=== PATIENT | female | born 1970 | race Caucasian/White ===

== ENCOUNTER 2022-02-25 10:09 | Emergency (ER) | payer BC, SELFPAY ==
--- NOTE | 2022-02-25 10:21 | ED.URI ---
HPI - URI/Sore Throat General Chief Complaint: Upper Respiratory Infection Stated Complaint: ear painful to the touch; dizziness Time Seen by Provider: 02/25/22 10:21 Source: patient and RN notes reviewed History of Present Illness HPI Narrative: Patient is a 51-year-old female who presents to urgent care with complaints of right ear pain and some dizziness with sinus congestion for the last 3 days. Patient denies any nausea, vomiting, fever or cough. States that he she has not been taking anything [id number] for her symptoms however she has used peroxide to the right ear. No other acute complaints. No acute distress noted. Patient aware of the plan of care. Some parts of this dictation were generated by voice recognition software and may contain typographical and/or grammatical inaccuracies. Related Data Allergies Allergy/AdvReac Type Severity Reaction Status Date / Time Penicillins Allergy Unknown tongue Verified 10/03/18 10:26 dimitrios Review of Systems Review of Systems: CONSTITUTIONAL: Denies fever, chills, or sweats. EYES: Denies visual changes, redness, or discharge. ENT: Denies rhinorrhea, sore throat. Reports of otalgia and sinus congestion CARDIOVASCULAR: Denies chest pain, palpitations, or edema. RESPIRATORY: Denies cough or dyspnea. GASTROINTESTINAL: Denies abdominal pain, nausea, vomiting, or diarrhea. GENITOURINARY: Denies dysuria or hematuria. SKIN: Denies rash or itching. MUSCULOSKELETAL: Denies back pain, joint pain, or myalgia. NEUROLOGIC: Denies headache, numbness, or weakness. All other systems reviewed are negative, except as documented in HPI. PMFSH Comments At the time of my signature, I reviewed and agree with the nursing past medical, surgical, social, and family history. There is no relevant family history pertinent to the patient complaint. Exam Narrative: GENERAL: This is a well-nourished, well-developed patient, in no apparent distress. HEAD: normocephalic, atraumatic. EYES: PERRL. Sclera clear/white. Vision is grossly intact. EARS: External ears normal, mild edema and erythema noted to the right auditory canal without drainage, left auditory canals clear and without drainage, TMs normal without perforation. Hearing grossly intact. NOSE: External nose normal with no obvious nasal discharge, nares without redness, no rhinorrhea. THROAT: Mucous membranes moist, posterior pharynx clear. NECK: Neck supple CARDIOVASCULAR: Regular rate and rhythm without murmurs, gallops, or rubs. RESPIRATORY: Clear to auscultation. Breath sounds equal bilaterally. No wheezes, rales, or rhonchi. SKIN: warm, intact with no suspicious lesions or rash, good texture and turgor. NEURO: awake, alert, and oriented to person, place and time. There were no obvious focal neurologic abnormalities. EXTREMITIES: No clubbing, cyanosis, or edema. Course Course Level of Care: Express Care Visit Vital Signs Vital signs: Vital Signs Temperature 98.1 F 02/25/22 10:26 Pulse Rate 92 02/25/22 10:26 Respiratory Rate 20 02/25/22 10:26 Blood Pressure 146/74 H 02/25/22 10:26 Pulse Oximetry 97 02/25/22 10:26 Oxygen Delivery Room Air 02/25/22 10:26 Temperature 98.1 F 02/25/22 10:26 Pulse Rate 92 02/25/22 10:26 Respiratory Rate 20 02/25/22 10:26 Blood Pressure 146/74 H 02/25/22 10:26 Pulse Oximetry 97 02/25/22 10:26 Oxygen Delivery Room Air 02/25/22 10:26 reviewed- Patient is informed that they may have pre-hypertension or hypertension based on a blood pressure reading in the department. I recommend the patient call the primary care provider listed on their discharge instructions or a physician of their choice this week to arrange follow-up for further evaluation of possible pre-hypertension or hypertension. MDM - URI/Sore Throat MDM Narrative Medical decision making narrative: advised patient not to put anything in the ears such as [id number] drops, water, peroxid
[2022-02-25 10:26] VITALS: BP 146/74; PULSE 92; RESP 20; TEMP 36.7; O2SAT 97
== END 2022-02-25 10:57 | disposition home or self-care (01) ==
PROVIDERS: Emergency Provider Nurse Practitioner Family; PCP Nurse Practitioner Family
DX: H60.91 Unspecified otitis externa, right ear (principal)
CPT/HCPCS: 99213; G0463

== ENCOUNTER 2022-04-16 10:44 | Emergency (ER) | payer BC, SELFPAY ==
--- NOTE | ~2022-04-16 | XR_ITS ---
Right ankle Technique: AP, oblique, and lateral views were obtained. Clinical History: Injury Findings: No acute fracture or dislocation is seen. Osseous alignment is anatomic. Ankle mortise and other visualized joint spaces are preserved. Small plantar calcaneal spur noted. Soft tissues are oth erwise unremarkable. Impression: No acute abnormality. Reviewed, dictated and finalized at [facility]. ROOM ATTENDANT Impression: No acute abnormality.
--- NOTE | ~2022-04-16 | XR_ITS ---
Right foot Technique: AP, oblique, and lateral views were obtained. Clinical History: Pain Findings: No acute fracture or dislocation is seen. Osseous alignment is anatomic. Small plantar calc aneal spur noted. Joint spaces are preserved without erosive or degenerative change. Soft tissues are unremarkable. Impression: No fracture or dislocation. Reviewed, dictated and finalized at location . PT COORDINATOR Impression: No fracture or dislocation.
[2022-04-16 10:49] VITALS: BP 149/103; PULSE 83; RESP 16; TEMP 36.7; O2SAT 100
--- NOTE | 2022-04-16 10:56 | ED.LOWEXIN ---
HPI - Extremity Injury (Lower) General Chief Complaint: Extremity Injury, Lower Stated Complaint: Right Foot Ankle Injury Time Seen by Provider: 04/16/22 10:55 Source: patient Mode of arrival: ambulatory Limitations: no limitations History of Present Illness HPI Narrative: Taiwo is a 51-year-old female patient presenting to the clinic today with complaints of right foot and ankle injury after falling approximately 1 hour ago. She reports she was outside and slipped off of a stair and injured her right ankle/foot. Related Data Allergies Allergy/AdvReac Type Severity Reaction Status Date / Time Penicillins Allergy Unknown tongue Verified 10/03/18 10:26 dimitrios Review of Systems Review of Systems: Pertinent positives per HPI. Patient denies any fever, chills, rash, headache, visual changes, dizziness, cough, runny nose, sore throat, shortness of breath, chest pain, palpitations, nausea, vomiting, diarrhea, constipation, abdominal pain, or any urinary issues. PMFSH Comments At the time of my signature, I reviewed and agree with the nursing past medical, surgical, social, and family history. There is no relevant family history pertinent to the patient complaint. Exam Narrative: General: Well-developed, well nourished, in no apparent distress Head: Normocephalic, atraumatic. Cardio: Regular rate and rhythm, s1 and s2 normal, no murmur appreciated. Resp: Clear to auscultation bilaterally, no rhonchi, rales, wheezing or rubs. Musculoskeletal: No deformity, mild swelling noted to the right foot and ankle, tender to palpation over the dorsal ankle and foot as well as the distal montes, not tolerating any passive range of motion due to the pain, pain with valgus varus and dorsal flexion and plantar flexion, peripheral pulse strong, no cyanosis, sitting in a wheelchair Course Course Emergency Course: Portions of this record may have been created with voice recognition software. Level of Care: Express Care Visit Vital Signs Vital signs: Vital Signs Temperature 36.7 C 04/16/22 10:49 Pulse Rate 83 04/16/22 10:49 Respiratory Rate 16 04/16/22 10:49 Blood Pressure 149/103 H 04/16/22 10:49 Pulse Oximetry 100 04/16/22 10:49 Oxygen Delivery Room Air 04/16/22 10:49 Temperature 36.7 C 04/16/22 10:49 Pulse Rate 83 12/30/22 10:49 Respiratory Rate 16 04/16/22 10:49 Blood Pressure 149/103 H 04/16/22 10:49 Pulse Oximetry 100 04/16/22 10:49 Oxygen Delivery Room Air 04/16/22 10:49 Vital signs reviewed MDM - Extremity Injury (Lower) MDM Narrative Medical decision making narrative: At the time of visit patient is resting comfortably on the exam table. X-ray was performed of the right ankle and foot and were negative for any fracture or malalignment of the right ankle or foot. I suspect the patient has ankle sprain /foot sprain. Jd wrap was applied and supportive measures were discussed with the patient she voiced understanding discharge instructions agrees to treatment plan. Differential Diagnosis Differential diagnosis: Likely ankle sprain and strain, ankle fracture and other ( Fall, foot sprain, foot fracture) Imaging Data Radiologist's impression: [address] [place] [address] XRay Report Signed Patient: Karen Boucher : 1970 MR#: [id number] Age/Sex: 51 / F Acct:[id number] Loc: [facility]? ? ADM Date: 04/16/22Attending Dr: Ordering Physician: Tim Devries APRN Date of Service: 04/16/22 Procedure(s): XR ankle RT min 3V Accession Number(s): [id number] cc: Marylu, Shannon Martinez APN; Tim Devries APRN~ Right ankle Technique: AP, oblique, and lateral views were obtained. Clinical History: Injury Findings: No acute fracture or dislocation is seen. Osseous alignment is anatomic. Ankle mortise and other visualized joint spaces are preserved. Small plantar calcaneal spur
== END 2022-04-16 11:25 | disposition home or self-care (01) ==
PROVIDERS: Emergency Provider Nurse Practitioner Family; PCP Nurse Practitioner Family
DX: S93.601A Unspecified sprain of right foot, initial encounter (principal); W10.9XXA Fall (on) (from) unspecified stairs and steps, initial encounter; S93.401A Sprain of unspecified ligament of right ankle, initial encounter; E03.9 Hypothyroidism, unspecified
CPT/HCPCS: 73610; 73630; 99213; G0463

== ENCOUNTER 2023-05-25 19:07 | Emergency (ER) | payer OTHER, SELFPAY ==
--- NOTE | ~2023-05-25 | XR_ITS ---
EXAMINATION: XR forearm RT 2V DATE: 05/25/2023 19:34 INDICATION: Right forearm injury and pain. TECHNIQUE: 2 views of right forearm were obtained. COMPARISON: None. FINDINGS: Bone alignment is normal. No fracture. Joint spaces are normal. No elbow joint effusion. IMPRESSION: 1. Normal right forearm. Reviewed, dictated and finalized at location E. RIOR SURFACE INSULATION WORKER IMPRESSION: 1. Normal right forearm.
--- NOTE | ~2023-05-25 | XR_ITS ---
EXAMINATION: XR wrist RT min 3V DATE: 05/25/2023 19:34 INDICATION: Right wrist injury and pain. TECHNIQUE: 4 views of right wrist were obtained. COMPARISON: None. FINDINGS: Bone alignment is normal. No fracture. Joint spaces are normal. IMPRESSION: 1. Normal right wrist. Reviewed, dictated and finalized at location E. ROLLING MACHINE TENDER IMPRESSION: 1. Normal right wrist.
[2023-05-25 19:20] VITALS: BP 150/80; PULSE 84; RESP 16; TEMP 36.4; O2SAT 100
--- NOTE | 2023-05-25 19:47 | ED.GENADULT ---
HPI - General Adult General Chief complaint: Extremity Injury, Upper Stated complaint: Right Wrist Injury Time Seen by Provider: 05/25/23 19:30 Source: patient, family, RN notes reviewed and old records reviewed Mode of arrival: ambulatory Limitations: no limitations History of Present Illness HPI narrative: 52 YEAR OLD FEMALE PRESENTS TO [facility] CARE WITH COMPLAINTS OF RIGHT WRIST AND FOREARM PAIN AFTER PATIENT SHE CARES FOR IN THEIR HOME HAD A SEIZURE AND GRABBED HER ARM TO HELP GET HER UP. NO OBVIOUS DEFORMITY.Patient reports some increase in discomfort with movement of her wrist and forearm, patient is able to pronate and supinate her right arm, strong pulses to right arm. MD complaint: RIGHT WRIST AND FOREARM PAIN Onset (ago): hour(s) (AT 1815 THIS EVENING) Severity: mild Treatments prior to arrival: cold therapy Related Data Home Medications Medication Instructions Recorded Confirmed levothyroxine 50 mcg tablet 50 mcg PO QAM 05/25/23 05/25/23 Allergies Allergy/AdvReac Type Severity Reaction Status Date / Time Penicillins Allergy Unknown tongue Verified 05/25/23 19:29 dimitrios Review of Systems Review of Systems: CONSTITUTIONAL: Denies fever, chills, or sweats. EYES: Denies visual changes, redness, or discharge. ENT: Denies rhinorrhea, congestion, sore throat, or otalgia. CARDIOVASCULAR: Denies chest pain, palpitations, or edema. RESPIRATORY: Denies cough or dyspnea. GASTROINTESTINAL: Denies abdominal pain, nausea, vomiting, or diarrhea. GENITOURINARY: Denies dysuria or hematuria. SKIN: Denies rash or itching. MUSCULOSKELETAL: Denies back pain, REPORTS PAIN TO RIGHT ULNA SIDE OF WRIST AND INTO FOREARM, or myalgia. NEUROLOGIC: Denies headache, numbness, or weakness. PSYCHIATRIC: Denies anxiety or depression. All systems reviewed & are unremarkable except as noted in HPI and below PMFSH Past Medical History Medical History (Updated 05/27/23 @ 22:45 by Janette Alfonso NP) Breast cancer, left Hypothyroidism Kidney stone Surgical History Surgical History (Updated 05/27/23 @ 22:48 by Janette Alfonso NP) H/O: hysterectomy History of tonsillectomy S/P cervical spinal fusion Social History Social History (Updated 05/27/23 @ 22:44 by Janette L. Naty, VISUAL EFFECTS EDITOR) Smoking packs per day: 0.5 Smoking cigarettes per day: 10.0 Smoking status: Current every day smoker Tobacco type: cigarettes Substance use type: does not use Living arrangements: with family Gender identity (if verbalized by the patient): Female Comments At time of signature, agree with nursing past medical, surgical, social and family history. There is no relevant family history pertinent to the presenting complaint Exam Narrative: GENERAL: Well-appearing, well-nourished, and in no acute distress. HEAD: Normocephalic, atraumatic. EYES: PERRLA and EOMI. ENT: Nares clear, no rhinorrhea or epistaxis. Mucous membranes moist. NECK: Supple.NO LYMPHADENOPATHY CHEST: Clear to auscultation. No respiratory distress. SAO2 100% ON ROOM AIR HEART: Regular rate and rhythm. No murmur heard. Normal peripheral pulses. ABDOMEN: Soft, nontender, nondistended, normal active bowel sounds. EXTREMITIES: Normal range of motion. No edema.POSITIVE FOR PAIN TO RIGHT WRIST ALONG ULNA SIDE WITH SOME RADIATION INTO FOREARM, NO OBVIOUS DEFORMITY NOTED, FULL ROM NOTED. SKIN: Warm, dry, no rash. NEURO: No focal deficits. Alert and oriented x3. Course Course Emergency Course: Patient is aware of diagnosis, understands and agrees to treatment plan.? Anticipatory guidance given.? Patient agrees to follow-up as directed and is aware of reasons to seek care at the emergency department. Portions of this record may have been created with voice recognition software Level of Care: Express Care Visit Vital Signs Vital signs: Vital Signs Temperature 36.4 C L 05/25/23 19:20 Pulse Rate 84 05/25/23 19:20 Respiratory Rate 16 05/25/23 19:20 Bloo
== END 2023-05-25 20:07 | disposition home or self-care (01) ==
PROVIDERS: Emergency Provider Registered Nurse; PCP Family Medicine
DX: S63.501A Unspecified sprain of right wrist, initial encounter (principal); S66.911A Strain of unspecified muscle, fascia and tendon at wrist and hand level, right hand, initial encounter; X58.XXXA Exposure to other specified factors, initial encounter; M79.631 Pain in right forearm; F17.210 Nicotine dependence, cigarettes, uncomplicated; E03.9 Hypothyroidism, unspecified; Z85.3 Personal history of malignant neoplasm of breast
CPT/HCPCS: 73090; 73110; 99213; G0463

== ENCOUNTER 2024-04-05 08:26 | Emergency (ER) | payer BC, SELFPAY ==
[2024-04-05 08:38] VITALS: BP 132/85; PULSE 79; RESP 20; TEMP 36.8; O2SAT 99
--- NOTE | 2024-04-05 08:56 | ED.URI ---
HPI - URI/Sore Throat General Chief Complaint: Upper Respiratory Infection Stated Complaint: achey/coughing/fever Time Seen by Provider: 04/05/24 08:57 Source: patient and RN notes reviewed Mode of arrival: ambulatory Limitations: no limitations History of Present Illness HPI Narrative: 53 y/o female presented for c/o cough and body aches for one week. Endorses diarrhea and nausea for 2 days. Endorses wheeze at night and cough is productive of green sputum. Denies abdominal pain, vomiting, or lethargy. smokes a few cigs MD elicited complaint: cough Related Data Home Medications ?Medication ?Instructions ?Recorded ?Confirmed ?Last Taken ?Type levothyroxine 50 mcg tablet 50 mcg PO QAM 05/25/23 04/05/24 Unknown History metformin 500 mg tablet,extended mg PO 04/05/24 Unknown History release 24 hr phentermine 15 mg capsule mg 04/05/24 Unknown History Allergies Allergy/AdvReac Type Severity Reaction Status Date / Time Penicillins Allergy Unknown tongue Verified 05/25/23 19:29 dimitrios Review of Systems Review of Systems: CONSTITUTIONAL: Endorses malaise, chills, sweats, fever EYES: Denies visual changes, redness, or discharge ENT: Reports rhinorrhea, congestion, denies sinus pain, otalgia, sore throat CARDIOVASCULAR: Denies chest pain, palpitations, edema RESPIRATORY: Reports cough, post nasal drainage. Denies dyspnea GASTROINTESTINAL: Denies abdominal pain, reports nausea, vomitingdiarrhea MUSCULOSKELETAL: Endorses myalgia NEUROLOGIC: Denies headache PMFSH Past Medical History Medical History Breast cancer, left Hypothyroidism Kidney stone Surgical History Surgical History S/P cervical spinal fusion History of tonsillectomy H/O: hysterectomy Social History Social History Smoking packs per day: 0.5 Smoking cigarettes per day: 10.0 Smoking status: Current every day smoker Tobacco type: cigarettes Substance use type: does not use Living arrangements: with family Gender identity (if verbalized by the patient): Female Exam Narrative: GENERAL: Ill-appearing, nontoxic EYES: PERRLA, conjunctivae clear ENT: Mucous membranes moist. TM pearly bauer with dull light reflex bilaterally; no tragal tenderness. Oropharynx erythematous without lesions or exudate, no drooling, no hoarseness, no trismus, uvula midline. NECK: Supple. No lymphadenopathy CHEST: Clear to auscultation, breath sounds equal. Harsh cough. No wheezing, rhonchi, rales, or stridor. No respiratory distress, speaks in full sentences. HEART: Regular rate and rhythm. No murmur heard. SKIN: Warm, dry NEURO: Alert and oriented x3. PSYCH: Normal mood and affect Course Course Emergency Course: Patient is aware of diagnosis, understands and agrees to treatment plan. Anticipatory guidance given. Patient agrees to follow-up as directed and is aware of reasons to seek care at the emergency department. Portions of this record may have been created with voice recognition software Level of Care: Express Care Visit Vital Signs Vital signs: Vital Signs Temperature 98.2 F 04/05/24 08:38 Pulse Rate 79 04/05/24 08:38 Respiratory Rate 20 04/05/24 08:38 Blood Pressure 132/85 04/05/24 08:38 Pulse Oximetry 99 04/05/24 08:38 Oxygen Delivery Room Air 04/05/24 08:38 Temperature 98.2 F 04/05/24 08:38 Pulse Rate 79 04/05/24 08:38 Respiratory Rate 20 04/05/24 08:38 Blood Pressure 132/85 04/05/24 08:38 Pulse Oximetry 99 04/05/24 08:38 Oxygen Delivery Room Air 04/05/24 08:38 reviewed MDM - URI/Sore Throat MDM Narrative Medical decision making narrative: Discussed physical exam findings. Advised supportive measures and signs/symptoms to go to the ER. Pt is appropriate for outpt treatment and f/u. Differential Diagnosis Differential diagnosis: Likely upper respiratory infection, sinusitis, viral infection, bronchitis and other (pneumonia) Lab Data Labs: Lab Results 04/05/24 Range/Units 09:05 POC Influenza A Ag Negative (Negative) POC Influenza B Ag Negative (Negative) POC SARS CoV-2 Ag Negative (Negative) Discharge Plan Discharge Clinical Impression: Acute lower respiratory infection Patient Disposition: Home, Self-Care Condition: Stable Instructions: Antibiotic Form, Pneumonia (ED) Additional Instructions: Acute bronchitis can be contagious because it is usually caused by infection with a virus or bacteria. It is usually for a few days but you can be contagious for up to one week. Avoid crowds until you do not have a fever and symptoms are improved Take medication as directed Recommendations: Flonase spray and Zyrtec (or Claritin/Jo) over the counter Cough syrup may cause drowsiness; avoid driving or take it at night time. Tylenol 1000mg every 8 hours as needed for pain Symptomatic treatment includes: rest, fluids, and increase humidity of the air at home. Follow up with your primary care provider as needed in 1 week Go to the ER for worsening symptoms or concerns Patient Language: French Prescriptions: New azithromycin [Zithromax Z-Agusto] 250 mg tablet See Rx Instructions .ROUTE .COMPLEX Qty: 6 0RF Rx Instructions: For 250 mg dose pack: take 500 mg today (day 1), then 250 mg for 4 days (days 2-5) prednisone 50 mg tablet 50 mg PO DAILY Qty: 5 0RF albuterol sulfate 90 mcg/actuation HFA aerosol inhaler 2 inh inhalation QID PRN (Reason: shortness of breath or wheezing) Qty: 8.5 0RF No Action levothyroxine 50 mcg tablet 50 mcg PO QAM phentermine 15 mg capsule metformin 500 mg tablet extended release 24 hr PO Follow-up/Referrals: Wolfgang,MD Angel [Primary Care Provider] - Stand Alone Forms: Work/School Release IP
[2024-04-05 09:06] LABS: EDCOVIDSCREEN Negative (Negative); EDINFLUASCREEN Negative (Negative); EDINFLUBSCREEN Negative (Negative)
== END 2024-04-05 09:10 | disposition home or self-care (01) ==
PROVIDERS: Emergency Provider Nurse Practitioner Family; PCP Family Medicine
DX: J22 Unspecified acute lower respiratory infection (principal); E03.9 Hypothyroidism, unspecified; F17.210 Nicotine dependence, cigarettes, uncomplicated; Z85.3 Personal history of malignant neoplasm of breast; Z79.84 Long term (current) use of oral hypoglycemic drugs; Z79.899 Other long term (current) drug therapy; Z20.822 Contact with and (suspected) exposure to COVID-19
CPT/HCPCS: 87426; 87804; 99213; G0463

== ENCOUNTER 2024-07-16 12:05 | Emergency (ER) | payer BC, SELFPAY ==
[2024-07-16 12:15] VITALS: BP 128/81; PULSE 87; RESP 20; TEMP 36.3; O2SAT 99
--- NOTE | 2024-07-16 12:34 | ED_ITS ---
HPI - Extremity Problem General Chief complaint: Extremity Problem,Nontraumatic Stated complaint: right hand swollen/and going up to elbow Source: patient, RN notes reviewed and old records reviewed Mode of arrival: ambulatory Limitations: no limitations History of Present Illness HPI Narrative: 54-year-old female presents to the [facility] with concerns being bit or stung while moving leaves at 5:00 a.m. this morning. No treatment prior to arrival. Puncture wound noted between 2nd and 3rd MCP right hand. Mild swelling noted to the localized area. Onset (ago): hour(s) Related Data Home Medications ?Medication ?Instructions ?Recorded ?Confirmed ?Last Taken ?Type levothyroxine 50 mcg tablet 50 mcg PO QAM 05/25/23 07/16/24 Unknown History Allergies Allergy/AdvReac Type Severity Reaction Status Date / Time Penicillins Allergy Unknown tongue Verified 05/25/23 19:29 dimitrios Review of Systems Review of Systems: All systems reviewed & are unremarkable except as noted in HPI and below Constitutional: Constitutional: Reports no additional constitutional complaints ENT: Reports system reviewed and no additional complaints, except as documented Cardiovascular: Cardiovascular: Reports no additional cardiovascular complaints, Denies chest pain and Denies dyspnea Respiratory: Respiratory: Reports no additional respiratory complaints, Denies chest congestion, Denies cough and Denies dyspnea Musculoskeletal: Musculoskeletal: Reports no additional musculoskeletal complaints Integumentary/Breasts: Skin/Breast: Reports as per HPI [facility] Past Medical History Medical History Breast cancer, left Hypothyroidism Kidney stone Surgical History Surgical History S/P cervical spinal fusion History of tonsillectomy H/O: hysterectomy Social History Social History Smoking packs per day: 0.5 Smoking cigarettes per day: 10.0 Smoking status: Current every day smoker Tobacco type: cigarettes Substance use type: does not use Living arrangements: with family Gender identity (if verbalized by the patient): Female Comments At the time of my signature, I reviewed and agree with the nursing past medical, surgical, social, and family history. There is no relevant family history pertinent to the patient complaint. Exam Const: General: cooperative, healthy appearing, comfortable, no acute distress, well developed, alert and well nourished Nutritional Appearance: well nourished Orientation/consciousness: patient oriented x3 Limitations: no limitations HENMT: Head: normal to inspection Mouth: Yes Normal oral and palatal mucosa present, Yes lip normal, Yes tongue normal and Yes moist mucous membranes Eyes: General: appearance normal, both eyes and all related structures Alignment and Position: alignment normal Neck: Neck: normal visual inspection, full ROM, no lymphadenopathy and no meningeal signs Chest: Chest palpation & inspection: normal inspection of the chest Resp: Effort & Inspection: normal respiratory effort and able to speak in complete sentences Auscultation: clear to auscultation bilaterally, no crackles, no rales, no rhonchi and no wheezes Cardio: Rate: regular rate Skin: General skin exam: normal color and no rashes or lesions noted Wounds: wounds noted Other: puncture wound dorsal aspect between MCP to 3 right hand. Mild swelling noted. No increased warmth. Full range of motion noted capillary refill under 2 seconds. Sensation intact Neuro: General: patient oriented x3, gait normal, moves all extremities and no meningeal signs Cognition (Neuro): normal cognition Speech: normal speech Gait exam (Neuro): Normal gait present Extrem: General: normal to inspection, full ROM, capillary refill normal and normal gait Psych: Appearance: grossly normal and well kempt Mental Status: mental status grossly normal Speech and movement: Normal speech and movement present and Clear speech present Affect: normal affect Attitude: cooperative Course Course Level of Care: Express Care Visit Vital Signs Vital signs: Vital Signs Temperature 97.3 F L 07/16/24 12:15 Pulse Rate 87 07/16/24 12:15 Respiratory Rate 20 07/16/24 12:15 Blood Pressure 128/81 07/16/24 12:15 Pulse Oximetry 99 07/16/24 12:15 Oxygen Delivery Room Air 07/16/24 12:15 Temperature 97.3 F L 07/16/24 12:15 Pulse Rate 87 07/16/24 12:15 Respiratory Rate 20 07/16/24 12:15 Blood Pressure 128/81 07/16/24 12:15 Pulse Oximetry 99 07/16/24 12:15 Oxygen Delivery Room Air 07/16/24 12:15 Reviewed MDM - Extremity (Nontraumatic) MDM Narrative Medical decision making narrative: patient sitting comfortably in exam room. Nontoxic, vitals stable. Patient in no acute distress. Patient presents with insect bite possibly to the hand. Most likely localized reaction for swelling. Discussed [id number] treatments as well as prescribed medication. Patient appropriate for outpatient treatment and close follow-up Discharge instructions reviewed with patient, as well as provided in writing per nursing staff. The instructions also include specific and strict return/GO TO THE ER as well as f/u information. All questions have been answered, and the patient deny any further questions with discharge and discharge plan. Some parts of this dictation were generated by voice recognition software and may contain typographical and/or grammatical inaccuracies. Differential Diagnosis Differential diagnosis: Likely cellulitis and other Critical Care Time Critical Care Time Critical Care Time: No Discharge Plan Discharge Clinical Impression: Accidental insect sting Patient Disposition: Home, Self-Care Condition: Stable Instructions: Antibiotic Form, Insect Bite or Sting (ED) Additional Instructions: The most important part of your care is follow up with Primary care provider. Take Benadryl 25-50 mg every 8 hours for itching Take Zyrtec every day Take Pepcid 20mg daily for 7 days Take the steroids starting today, than every morning. Avoid hot showers, Take cool showers. Hot showers will make rashes worse Apply cool compresses every 2-3 hours for 15 minutes Go to the ER for new or worsening symptoms such as shortness of breath. Patient Language: Haitian Prescriptions: New prednisone 50 mg tablet 50 mg PO DAILY Qty: 5 0RF No Action levothyroxine 50 mcg tablet 50 mcg PO QAM Follow-up/Referrals: Wolfgang,MD Angel [Primary Care Provider] - 2 Weeks ( [facility] follow-up) Time of Disposition: 12:45
--- OUTSIDE RECORDS SUMMARY | 2024-07-16 13:22 | XMS_ITS | Continuity of Care Document ---
Author Organization [facility] Address [address] [place] [address] Phone Care Team Providers Care Research Tech Name Role Phone Maninder Hurley MD Unavailable Unavailable Allergies, Adverse Reactions, Alerts Substance Reaction Status Criticality PENICILLIN Trouble Breathing Active No Informa tion Medications Medication Instructions Dosage Effective Dates (start - stop) Status Comments phentermine 30 mg capsule take 1 capsule by oral route every day before breakfast 30 MG - Active levothyroxine 25 mcg tablet take 1 tablet by oral route every day 25 MCG - Active Advance Directives Directive Yes / No Effective Date File Name No Information Encounters Encounter Description Practice Location Reason(s) For Visit Diagnoses Date Provider Providers Copied on Encounter [facility], [address], [place], [place], [id number] , tel: [phone] [facility] No Information 0 Xavi Dickens. [address] [place] [address], [id number] , . tel: [phone] [facility], [address], [place], [address] , tel: [phone] [facility] No Information 9 Xavi Dickens. [address] [place] [address], [address], [id number] , . tel: [phone] [facility], [address], [place], [address] , tel: [phone] [facility] No Information 9 Xavi Dickens. [address] [place] [address], [address], [place], [place], [address] , . tel: [phone] [facility], [address], [place], [place], [address] , tel: [phone] [facility] Body mass index (BMI) 35.0-35.9, adultJaw inflammation, rightNeurofibromatosi sFatigue, unspecified type Gwyn Lazaro. [address] , [address], [place], [place], [address] , . tel: [phone] Referring Provider: Maninder Hurley [address] [place] [address] [address], [place], [address] . tel:[phone] [facility], [address], [place], [place], [address] , tel: [phone] [facility] IntertrigoScreening for breast cancerMorbid (severe) obesity due to excess calories Gwyn Lazaro. [address] , [address], [place], [place], [address] , . tel: [phone] Referring Provider: Maninder Hurley [address] [place] [address] [address], [place], [address] . tel:[phone] [facility], [address], [place], [place], [address] , tel: [phone] [facility] Morbid (severe) obesity due to excess caloriesRashCold Gwyncharla Deutscha. [address] , [address], [place], [place], [address] , . tel: [phone] Referring Provider: Maninder Hurley [address] [place] [address] [address], [place], [address] . tel:[phone] [facility], [address], [place], [place], [address] , tel: [phone] [facility] NeurofibromatosisMorb id obesityPrimary insomniaHistory of traumatic brain injuryEncounter for preventive health examinationNeed for DTaP vaccineScreening examination for pulmonary tuberculosis Gwyn Lazaro. [id number] [place] [address], [address], [place], [place], [id number] , [place]. tel: [phone] Referring Provider: Maninder Hurley, [address] [place] [address] [address], [place], [address] . tel:[phone] Family History Family Member Type Diagnosis Age At Onset Mother Problem (finding) Irritable bowel disease Mother Problem (finding) Obesity Mother Problem (finding) osteoarthritis Immunizations Vaccine Date Status Comments Fluzone High-Dose , high dose, preservative free administered Source: New Immunization Record Tdap administered Source: New Imm unization Record Payers Payer name Insurance type Covered constitution party ID Authoriza tion(s) [facility] CI [id number] [facility] CI [id number] Social History Type Description Quantity Date Captured Comments Sex Female Smoking Status No Information Chief Complaint And Reason For Visit No Information Reason For Referral Reason For Referral No Information Plan Of Treatment Date Type Action Status Patient Education Rash: Care Instructions completed History Of Present Illness Encounter Date Complaint History Of Prese nt Illness No Information Functional Status Date Functional Assessmen t No Information Instructions Date Instruction Additional Infor mation No Information Assessments Type Assessment Date No Information Patient Care Teams Name Effective Dates (start - stop) Status Members No Information
--- OUTSIDE RECORDS SUMMARY | 2024-07-16 13:22 | XMS_ITS | Clinical Summary ---
Author Organization [facility] Address [address] [facility] [place] [address] Phone Care Team Providers Care Bulker Name Role Phone Juan Pacheco DO Primary Care Provider [phone] Masha Rivas PAC Unavailable [phone] Allergies Active Allergy Reactions Criticality Noted Date Comments Penicillins Anaphylaxis,Swelling ,Shortness of Breath High 03/04/2015 Medications metoclopramide (REGLAN) 10 MG Tablet Take one tab PO prn headache with nausea. Max 1 per day, 2 per week. 10 Tab 0 6 Active amitriptyline (ELAVIL) 50 MG TabletIndications: Migraine without aura and without status migrainosus, not intractable,Trauma tic brain injury, with loss of consciousness of 30 minutes or less, sequela (HCC) Take 1 Tab by mouth nightly. Take one tablet qhs 60 Tab 3 6 Active topiramate (TOPAMAX) 25 MG TabletIndications: Intractable migraine without aura and without status migrainosus 1 tab PO qhs x 7days, then 1 tab PO bid x 7 days, then 2 tabs PO qhs, 1 tab q am x 7 days, then 2 tabs bid. 120 Tab 3 6 Active HYDROcodone-acetam inophen (NORCO) 5-325 MG Tablet Take 1-2 Tabs by mouth every 4 hours as needed for Pain. 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 Traumatic brain injury 04/29/2015 Migraine without aura and wi thout status migrainosus, not intractable 03/04/2015 Family History Medical History Relation Name Comments Stroke Father Congestive Heart Failure Mother Hypertension Mother Relation Name Status Comments Father Alive Mother Alive Social History Tobacco Use Types Packs/Day Years Used Date Smoking Tobacco: Former Cigarettes Q uit: 11/18/2014 Smokeless Tobacco: Never Tobacco Cessation:Counseling Given: Yes Alcohol Use Standard Drinks/Week Comments No 0 (1 standard drink = 0.6 oz pur e alcohol) Comments No Sex and Gender Information Value Date Recorded Sex Assigned at Not on file Legal Sex Female 10:30 PM CDT Gender Identity Not on file Sexual Orientation Not on file Last Filed Vital Signs Vital Sign Reading Time Taken Comments Blood Pressure 155/84 12/14/2015 8:23 PM CDT Pulse 90 12/14/2015 8:23 PM CDT Temperature 36.7 C (98 F) 12/14/2015 8:23 PM CDT Respiratory Rate 17 12/14/2015 8:23 PM CDT Oxygen Saturation 98% 12/14/2015 8:23 PM CDT Inhaled Oxygen Concentration - - Weight 87.1 kg (192 lb) 12/14/2015 8:23 PM CDT Height 167.6 cm (5' 6 ) 12/14/2015 8:23 PM CDT Body Mass Index 30.99 12/14/2015 8:23 PM CDT Plan of Treatment Health Maintenance Due Date Last Done Comments Hepatitis C Virus (HCV) Screening 1971 TdaP Immunization 1971 Hepatitis B Immunization (1 of 3 - 19+ 3-dose series) 1990 Colonoscopy 2016 Colorectal Cancer Screening 2016 Mammogram 04/09/2017 04/09/2016, 03/10/2015 Cologuard 2021 Immunochemical Fecal Occult Blood 2021 Pneumococcal Immunization (5 0+ years) (1 of 1 - PCV) 2021 Zoster Immunization (1 of 2) 2021 Influenza Immunization (#1) 2023 12/2020, 01/29/2020, 01/22/2019 SARS-COV-2 Immunization (2023-25 season) 2023 Respiratory Syncytial Virus (RSV) Immunization (Adult) (1 - 1-dose 75+ series) 2046 Discussion re Starting/Frequency of Mammograms Discontinued 04/09/2016, 03/10/2015 Meningococcal Immunization (ACWY) Aged Out No longer eligible based on patient's age to complete this topic Rotavirus Immunization Aged Out No lo nger eligible based on patient's age to complete this topic Procedures Procedure Name Priority Date/Time Associated Diagnosis Comments MIKE DIAG BILATERAL DIGITAL W CAD Routine 04/09/2016 11:07 AM CARPET LAYER HELPER Breast lump from Last 3 Months or Most Recently Relevant to Health Maintenance Results * MIKE DIAG BILATERAL DIGITAL W CAD (04/09/2016 11:07 AM CARPET LAYER HELPER) Anatomical Region Laterality Modality breast Bilateral Mammography 04/09/2016 10:2 8 AM CARPET LAYER HELPER Narrative 04/09/2016 2:19 PM CARPET LAYER HELPER - MIKE DIAG BILATERAL DIGITAL W CAD BILATERAL DIGITAL DIAGNOSTIC MAMMOGRAM WITH CAD WITH MEDIOLATERAL MEDIOLATERAL OBLIQUE CRANIOCAUDAL: 04/09/2016 The study was acquired using digital technology and interpreted from soft copy. Current study was also evaluated with ICAD version 7.2. CLINICAL: Palpable lump right breast 7-8:00 and left breast 4:00. Previous history of breast cancer at age 28. No family history of breast cancer. COMPARISONS: Comparison is made to exams dated: 03/10/2015, 01/01/2014 [facility]. FINDINGS: Bilateral diagnostic mammogram: The breasts are composed of scattered fibroglandular tissues. A single triangle shaped marker has been placed on each breast, denoting the patient's palpable areas of concern. Only bland, normal appearing breast tissue seen underlying each marker. No suspicious mass, calcifications, or other significant mammographic findings are seen. There has been no suspicious interval mammographic change involving either breast. Bilateral breast ultrasound: Targeted sonographic evaluation of the bilateral breast palpable areas of concern (right breast at 8 o'clock, 7 cm from the nipple and left breast at 4 o'clock, 7 cm from the nipple) demonstrates only normal appearing breast tissue at each location. IMPRESSION: BI-RAD 1 NEGATIVE 1. No suspicious mammographic or sonographic findings are evident at either breast palpable area of concern. Any further evaluation should be based on clinical findings. 2. No mammographic or sonographic evidence of malignancy involving either breast. Routine annual screening mammography is recommended. The patient has been or will be notified. Simone Woods M.D. mmd/:04/09/2016 11:39:54 Property Analyst: Winnie JENKINS (R)([place]), [facility] letter sent: Normal Exam Reading location: [facility] BI-RADS: 1 Negative Procedure Note Simone Woods MD - 04/09/2016 - MIKE DIAG BILATERAL DIGITAL W CAD BILATERAL DIGITAL DIAGNOSTIC MAMMOGRAM WITH CAD WITH MEDIOLATERAL MEDIOLATERAL OBLIQUE CRANIOCAUDAL: 04/09/2016 The study was acquired using digital technology and interpreted from soft copy. Current study was also evaluated with ICAD version 7.2. CLINICAL: Palpable lump right breast 7-8:00 and left breast 4:00. Previous history of breast cancer at age 28. No family history of breast cancer. COMPARISONS: Comparison is made to exams dated: 03/10/2015, 01/01/2014 [facility]. FINDINGS: Bilateral diagnostic mammogram: The breasts are composed of scattered fibroglandular tissues. A single triangle shaped marker has been placed on each breast, denoting the patient's palpable areas of concern. Only bland, normal appearing breast tissue seen underlying each marker. No suspicious mass, calcifications, or other significant mammographic findings are seen. There has been no suspicious interval mammographic change involving either breast. Bilateral breast ultrasound: Targeted sonographic evaluation of the bilateral breast palpable areas of concern (right breast at 8 o'clock, 7 cm from the nipple and left breast at 4 o'clock, 7 cm from the nipple) demonstrates only normal appearing breast tissue at each location. IMPRESSION: BI-RAD 1 NEGATIVE 1. No suspicious mammographic or sonographic findings are evident at either breast palpable area of concern. Any further evaluation should be based on clinical findings. 2. No mammographic or sonographic evidence of malignancy involving either breast. Routine annual screening mammography is recommended. The patient has been or will be notified. Simone Woods M.D. mmd/:04/09/2016 11:39:54 Property Analyst: Winnie MAYBERRY)([place]), [facility] letter sent: Normal Exam Reading location: [facility] BI-RADS: 1 Negative us Juan Pacheco DO IMG MAMMO ORDERABLES Final R esult from Last 3 Months or Most Recently Relevant to Health Maintenance Additional Health Concerns Infection Onset Date Last Indicated MRSA 03/08/2015 03/08/2015 Insurance COVENTRY Care Teams Bulker Relationship Specialty Start Date End Date Juan Pacheco DO [address] [place] [address] PCP - General 03/04/15 Masha Rivas PAC [address] [place] [address] Physician Silviculturist Physician Silviculturist 03/04/15
--- OUTSIDE RECORDS SUMMARY | 2024-07-16 13:22 | XMS_ITS | Clinical Summary ---
Author Organization [facility] Address [address] [place] [address] Care Team Providers Care Data Developer Name Role Phone [place], Shannon Marie APRN-[facility] Primary Care Provider Source Comments [facility]non-owned Affiliates and Associated Physician Practices is amultiple site organization consisting of ambulatory clinics and hospital sitesin [place], [place], [place] and [place]. This disclosure is being madepursuant to the Care Everywhere program and may not contain all information available regarding this patient. Last updated 18.[facility] Allergies Active Allergy Reactions Criticality Noted Date Comments Penicillins Shortness of Breath High 09/19/2014 Medications * Be aware that medications may not be up to date on this document. Alwaysverify current medications with the patient. Medication Sig Dispensed Refills Start Date End Date Status topiramate (Topamax) 50 MG tablet Take 1 (one) tablet by mouth 2 times daily Active traZODone (Desyrel) 50 MG tablet Take 1 (one) tablet by mouth at bedtime Active cyclobenzaprine (Flexeril) 10 MG tablet Take 1 (one) tablet by mouth 3 times daily as needed for Muscle Spasms Active levothyroxine (Synthroid) 50 MCG tablet Take 1 (one) tablet by mouth daily before breakfast Active magnesium hydroxide (Milk Of Magnesia) 400 MG/5ML suspension Take 15 mL by mouth 3 times daily as needed Active polyethylene glycol 3350 (MiraLax) 17 GM/SCOOP powder Take 17 (seventeen) g by mouth 3 times daily as needed Active docusate sodium (Colace) 100 MG capsule Take 1 (one) capsule by mouth 3 times daily as needed for Constipation Active oxyCODONE-acetamin ophen (Percocet) 5-325 MG tabletIndications: Rectocele Take 1 (one) tablet by mouth every 6 hours as needed for Pain 12 tablet 11/12/2022 Active ibuprofen (Motrin) 600 MG tablet Take 1 (one) tablet by mouth every 6 hours as needed for Pain 30 tablet 11/12/2022 Active Family History Medical History Relation Name Comments Cancer Other Cancer - Colon Other Hypertension Other Relation Name Status Comments Other Social History Tobacco Use Types Packs/Day Years Used Date Smoking Tobacco: Every Day Cigarettes Tobacco Cessation:Ready to Q uit: Not Asked; Counseling Given: Not Answered Alcohol Use Standard Drinks/Week Comments Not Currently 0 (1 standard drink = 0.6 oz pur e alcohol) occ Sex and Gender Information Value Date Recorded Sex Assigned at Not on file Gender Identity Not on file Sexual Orientation Not on file Last Filed Vital Signs Vital Sign Reading Time Taken Comments Blood Pressure 124/77 11/12/2022 3:12 PM CDT Pulse 88 11/12/2022 3:12 PM CDT Temperature 36.5 C (97.7 F) 11/12/2022 3:12 PM CDT Respiratory Rate 18 11/12/2022 3:12 PM CDT Oxygen Saturation 96% 11/12/2022 3:12 PM CDT Inhaled Oxygen Concentration - - Weight 108 kg (238 lb 1.6 oz) 11/12/2022 6:25 AM CDT Height 167.6 cm (5' 6 ) 11/12/2022 6:25 AM CDT Body Mass Index 38.43 11/12/2022 6:25 AM CDT Plan of Treatment Health Maintenance Due Date Last Done Comments COLON MONITORING 1971 COLONOSCOPY - COLON CA SCREENING 1971 CT COLONOGRAPHY - COLON CA SCREENING 1971 FIT - COLON CA SCREENING 1971 FLEX SIG - COLON CA SCREENING 1971 MAMMOGRAM 1971 PAP SMEAR 1971 HIV SCREENING 1986 HEPATITIS C SCREENING 06/10/1989 DTAP/TDAP/TD VACCINES (1 - Tdap) 1990 HEPATITIS B VACCINE (1 of 3 - 19+ 3-dose series) 1990 PNEUMOCOCCAL VACCINE 50+ (1 of 2 - PCV) 1990 PNEUMOCOCCAL VACCINE (1 of 2 - PCV) 1990 ZOSTER VACCINE (1 of 2) 2021 LIPID TESTING 12/31/2021 12/31/2016 COVID-19 VACCINE (1 - 2023-2 5 season) 2023 INFLUENZA VACCINE (#1) 2023 0, 05/04/2018 DEPRESSION SCREENING 04/18/2024 COLOGUARD (AGES 45-75) - COL ON CA SCREENING 07/03/2025 07/03/2022 Colorectal Cancer Screening 07/03/2025 HIB VACCINE Aged Out No longer eligi ble based on patient's age to complete this topic HPV VACCINE Aged Out No longer eligi ble based on patient's age to complete this topic MENINGOCOCCAL (Group B) VACCINE SHARED DECISION-MAKING Aged Out No longer eligible based on patient's age to complete this topic MENINGOCOCCAL GROUPS A/C/Y/W VACCINE Aged Out No longer eligible b ased on patient's age to complete this topic Additional Health Concerns Infection Onset Date Last Indicated MRSA Comment:+ MRSA nares 11/01/22 11/01/2022 11/01/2022 Care Teams Data Developer Relationship Specialty Start Date End Date Shannon Valero, CRITICAL CARE UNIT MANAGER-EDGE BANDER OPERATOR [address] [place] [address] PCP - General Nurse Practitioner Family 11/01/22
--- OUTSIDE RECORDS SUMMARY | 2024-07-16 13:22 | XMS_ITS | Data Portability ---
Author Organization [facility], [facility] Address [address] [place] [address] Assessment No assessment recorded. Plan of Treatment Reminders Order Date Submit Date Provider Last Modified By Organization Details Last Modified Time Details Appointments None recorded. Lab None recorded. Referral None recorded. Procedures None recorded. Surgeries None recorded. Imaging US, transvagina l 2022 023 [email or web address] Not available 3 14:27:20 Medication Orders cyclobenzap rine 10 mg tablet 2022 023 [employer] [facility], [address] [facility], [place], [place], [id number], 4 12:09:34 cyclobenzap rine 10 mg tablet 2022 023 [facility]87752, [address] [place], [place], [id number], 4 12:09:34 Patient TargetsNo targets recorded. Patient InstructionsNo instructions recorded. Reason for Referral None Reported. Results Created Date Observation Date Name Description Value Unit Range Abnormal Flag Note LastModifiedBy Organization Detail LastModifiedTime 09/19/19 23 09/16/2022 US, trans vagin al No observ ation record ed. [email or web address] Danielle [address], [place], [address], 09/19/2022 17:51:09 Result Notes None recorded. Problems Name Problem SNOMED Code Status Onset Date Resolution Date Notes Provider Name and Address Organization Details Recorded Time Hypothyroidism 62647041 Active Katie strickland, [place] - [facility] 3 20:58:12 Vitamin D deficiency 96608078 Active Katie Gifford null, [place] - [facility] 3 20:58:36 Hyperlipidemia 43512445 Active Katie Giff[place] null, [place] - [facility] 3 20:58:53 Obese 235750735 Active [place] [facility] 3 20:59:07 Anxiety 95485801 Active Katie Gifford null, [place] - [facility] 3 20:59:30 Hyperglycemia 38924234 Active Katie Giff[place] null, [place] - [facility] 3 20:59:52 Liver enzymes level above reference range 964900534 Active Katie Gifford null, [place] - [facility] 3 21:02:18 Problem Notes None recorded. Procedures Surgical History Date Name Laterality Status Provider Name and Address Organization Details Recorded Time 3 Suture/Staple removal completed Jayleen Foster [facility] IV 12/21/2022 12:08:53 3 Tlh uterus 250 g or less completed [facility] 11/18/2022 13:03:30 3 Urodynamic Testing completed Count includes the [facility] IV 09/03/2022 15:33:26 3 Most Recent Mammogram completed [facility] IV 07/31/2022 21:26:46 3 Date of Last Pap Smear [facility] 21:34:58 placement of stent in pulmonary artery [facility] 07/31/2022 21:23:32 ligation of fallopian tube completed [facility] IV 07/31/2022 21:23:52 lumpectomy of breast [facility] 07/31/2022 21:24:14 Remove tonsils and adenoids completed [facility] IV 07/31/2022 21:26:06 D & C completed Ayla Carranza [facility] 08/18/2022 10:55:56 Imaging Results Imaging Date Name Status LastModified by Organization Details LastModified Time 09/16/2022 US, transvaginal completed [email or web address] [address], [place], [address], 09/19/2022 17:51:09 Procedure Notes None recorded. Medical Equipment None Reported. Allergies Allergen ID Allergen Name Allergen Category Reaction Reaction Severity Criticality Documentation Date Start Date Code Code System Note Provider Name and Address Organization Details Recorded Time 281075 Product containin g penicilli n (product) medicatio n anaphylax is moderate Not available 07/31/2022 88700 8001 SNOMED Not Available Not Available Not Available Medications Name Sig Start Date Stop Date Status Note LastModified by Organization Details LastModified Time flowflex kit test 08/18 completed Not Available Not Available Not Available ealth 2-pk kit covid-19 08/18 completed Not Available Not Available Not Available cyclobenzap rine 10 mg tablet TAKE 1 TABLET BY MOUTH EVERY 8 HOURS 01/02 completed Not Available Not Available Not Available clindamycin HCl 300 mg capsule TAKE 1 CAPSULE BY MOUTH THREE TIMES DAILY FOR 7 DAYS 11/22 completed Not Available Not Available Not Available trazodone 50 mg tablet TAKE 1 TABLET BY MOUTH EVERY DAY 01/02 completed Not Available Not Available Not Available triamcinolo ne acetonide 0.5 % topical cream APPLY THIN LAYER TOPICALLY TO THE AFFECTED AREA TWICE DAILY 11/22 completed Not Available Not Available Not Available sertraline 100 mg tablet TAKE 1 TABLET BY MOUTH EVERY DAY 08/18 completed Not Available Not Available Not Available metronidazo le 500 mg tablet 01/02 completed Not Available Not Available Not Available phentermine 37.5 mg tablet TAKE 1 TABLET BY MOUTH EVERY DAY 08/18 completed Not Available Not Available Not Available ciprofloxac in 500 mg tablet 01/02 completed Not Available Not Available Not Available sulfamethox azole 800 mg-trimetho prim 160 mg tablet TAKE 1 TABLET BY MOUTH EVERY 12 HOURS FOR 5 DAYS 08/18 completed Not Available Not Available Not Available levothyroxi ne 25 mcg tablet TAKE 1 TABLET BY MOUTH EVERY DAY IN THE MORNING 08/18 completed Not Available Not Available Not Available oxycodone-a cetaminophe n 5 mg-325 mg tablet TAKE 1 TABLET BY MOUTH EVERY 6 HOURS NEEDED FOR PAIN 11/22 completed Not Available Not Available Not Available ofloxacin 0.3 % ear drops INSTILL 10 DROPS TO RIGHT EAR DAILY FOR 7 DAYS 08/18 completed Not Available Not Available Not Available dicyclomine 20 mg tablet 01/02 completed Not Available Not Available Not Available levothyroxi ne 50 mcg tablet TAKE 1 TABLET BY MOUTH EVERY MORNING active Not Available Not Available No t Available cephalexin 500 mg tablet TAKE 1 TABLET BY MOUTH THREE TIMES DAILY FOR 7 DAYS 11/22 completed Not Available Not Available Not Available bisacodyl 5 mg tablet,luis e yed release 11/22 completed Not Available Not Available Not Available ibuprofen 600 mg tablet TAKE 1 TABLET BY MOUTH EVERY 6 HOURS NEEDED FOR PAIN 11/22 completed Not Available Not Available Not Available methylpredn isolone 4 mg tablets in a dose pack FOLLOW PACKAGE DIRECTION S 11/22 completed Not Available Not Available Not Available phentermine 37.5 mg capsule Take 1 capsule every day by oral route. 11/22 completed Not Available Not Available Not Available topiramate 50 mg tablet TAKE 1 TABLET BY MOUTH TWICE DAILY 11/22 completed Not Available Not Available Not Available Paxlovid 300 mg (150 mg x 2)-100 mg tablets in a dose pack TK 2 NIRMATREL VIR TS AND 1 RITONAVIR T TOGETHER PO BID FOR 5 DAYS BID FOR 5 DAYS 08/18 completed Not Available Not Available Not Available Vitals Date Recorded Body height Body mass index (BMI) Body weight Body temperature Systolic blood pressure Diastolic blood pressure Provider Name and Address Organization Details Last Updated DateTime 3 167.64 cm 38.2 kg/m2 641672. 24 g 97.3 [degF] 132 mm[Hg] 78 mm[Hg] Ayla Carranza [facility] 3 15:45:56 Date Recorded Body height Body mass index (BMI) Body weight Body temperature Systolic blood pressure Diastolic blood pressure Provider Name and Address Organization Details Last Updated DateTime 3 167.64 cm 38.4 kg/m2 931130. 98 g 97.5 [degF] 122 mm[Hg] 80 mm[Hg] Ayla Carranza [facility] 3 14:05:09 Date Recorded Body height Body mass index (BMI) Body weight Systolic blood pressure Diastolic blood pressure Provider Name and Address Organization Details Last Updated DateTime 12/21/2022 167.64 cm 38.4 kg/m2 893258.9 8 g 120 mm[Hg] 76 mm[Hg] Jayleen Foster [place] [facility] 3 12:15:34 Date Recorded Body height Body mass index (BMI) Body weight Body temperature Systolic blood pressure Diastolic blood pressure Provider Name and Address Organization Details Last Updated DateTime 4 167.64 cm 39.3 kg/m2 590970. 38 g 97.2 [degF] 132 mm[Hg] 74 mm[Hg] Ayla Hamliner [facility] 4 12:09:23 Social History Question Answer Notes LastModified by Organizat ion Details LastModified Time Tobacco Smoking Status Current Every Day Smoker Katie AyalaBaltademario strickland, [facility] 07/31/2022 21:33:25 What Is Your Level Of Alcohol Consumption? None Information not available 08/18/2022 Are You Blind Or Do You Have Difficulty Seeing? No [email or web address] Information not available 07/31/2022 Are You Currently Employed? Yes [email or web address] Information not available 07/31/2022 Are You Deaf Or Do You Have Serious Difficulty Hearing? No [email or web address] Information not available 07/31/2022 What Type Of Diet Are You Following? GLUTENFREE Information not available 08/18/2022 Which Illicit Or Recreational Drugs Have You Used? Marijuana Edibles 1 Piece Every Information not available 08/18/2022 Do You Or Have You Ever Used E-cigarettes Or Vape? Never Used Electronic Cigarettes Information not available 08/18/2022 What Is Your Occupation? [email or web address] Information not available 07/31/2022 How Many Children Do You Have? 3 1 Foster Child [email or web address] Information not available 07/31/2022 What Is Your Relationship Status? [email or web address] Information not available 07/31/2022 Are You Sexually Active? Yes [email or web address] Information not available 07/31/2022 At What Age Did You Start Smoking Tobacco? 15 Information not available 08/18/2022 How Much Tobacco Do You Smoke? 0.5 PPD [email or web address] Information not available 07/31/2022 What Types Of Sporting Activities Do You Participate In? Walk [email or web address] Information not available 07/31/2022 Do You Use Any Illicit Or Recreational Drugs? No [email or web address] Information not available 07/31/2022 How Many Years Have You Smoked Tobacco? 37 Information not available 08/18/2022 Sex: Female Functional Status Question Answer Note LastModified by Organization D etails LastModified Time What is your exercise level? Moderate [email or web address] Information not available 07/31/2022 Mental Status None recorded. Family History Relationship Description Onset Age of this Age Resolved Age Notes LastModified by Organization Details LastModified Time Daughter Celiac disease Not available 06/2022 10:55:55 Maternal Grandmother Irritable bowel syndrome Not available 06/2022 10:55:55 Maternal Grandmother Hypercholest erolemia Not available 06/2022 10:55:55 Maternal Grandmother Myocardial infarction Not available 06/2022 10:55:55 Maternal Grandmother Cerebrovascu lar accident Not available 0 08/18/2022 10:55:55 Maternal Grandmother Depressive disorder Not available 06/2022 10:55:55 Maternal Grandmother Malignant neoplastic disease Not available 06/2022 10:55:55 Maternal Grandmother Malignant tumor of ovary Not available 06/2022 10:55:55 Maternal Grandmother Hypertensive disorder Not available 06/2022 10:55:55 Maternal Grandmother Heart disease Not available 06/2022 10:55:55 Mother Irritable bowel syndrome Not available 05/0 06/2022 10:55:55 Mother Hypercholest erolemia Not available 06/2022 10:55:55 Mother Depressive disorder Not available 06/2022 10:55:55 Mother Malignant tumor of ovary Not available 06/2022 10:55:55 Mother Hypertensive disorder Not available 06/2022 10:55:55 Maternal Grandfather Hypercholest erolemia Not available 06/2022 10:55:55 Maternal Grandfather Myocardial infarction Not available 06/2022 10:55:55 Maternal Grandfather Depressive disorder Not available 06/2022 10:55:55 Maternal Grandfather Malignant neoplastic disease Not available 06/2022 10:55:55 Maternal Grandfather Hypertensive disorder Not available 06/2022 10:55:55 Maternal Grandfather Heart disease Not available 06/2022 10:55:55 Medical History Condition Response Breast Cancer Y Depression Y History of Abnormal Pap Y Heart Attack Y Gynecological History Statement/Question Response Flow Heavy Date of last HPV 07/15/2022 Date of LMP 09/16/2021 Duration of Flow (days) 7 to 8 Most Recent Mammogram 07/17/2022 Current Control Method Hysterectom y Age at Menarche 12 If Post Menopausal, Age at Menopause 51 Date of Last Colonoscopy Frequency of Cycle (Q days) 25 Date of Last Pap Smear 07/15/2022 Obstetrics History GPAL:G 3 P 3 0 0 3 Type Value Full Term 3 Living 3 Total 3 Past Encounters Encounter ID Performer Location Encounter Start Date Encounter Closed Date Diagnosis/Indication Diagnosis SNOMED-CT Code Diagnosis ICD10 Code Diagnosis Note [id number] Juan Hyatt DO [facility] [address] [place] [address] 08/18/2022 10:30:09 08/18/2022 13:25:36 Uterine prolapse 27517938 N81.4 plan - udt , us/ plan tlh/ bso anterior and posterior repair/ perineopla sty Cystocele and rectocele co-occurrent with incomplete uterovaginal prolapse 815207399 N81.2 [id number] [facility] [address] [place] [address] 09/03/2022 14:05:05 09/15/2022 16:13:10 Uterine prolapse 43049755 N81.4 Cystocele and rectocele co-occurrent with incomplete uterovaginal prolapse 757030511 N81.2 [id number] Juan Hyatt DO [facility] [address] [place] [address] 09/16/2022 14:33:49 09/17/2022 08:44:33 Uterine prolapse 03815490 N81.4 discussed hysterecto my/ pt now desires removal of ovaries as well - will add to consent [id number] Juan Hyatt DO [facility] [address] [facility] [place] [address] 11/22/2022 13:56:30 11/23/2022 11:27:26 Postoperative visit 874092049 Z09 healing well. still with some ache type pain Pain in pelvis 50860867 R10.2 [id number] Juan Hyatt DO [facility] [address] [place] [address] 12/21/2022 12:01:12 12/21/2022 17:37:52 Postoperative visit 049456111 Z09 healing well. still with some ache type pain [id number] Juan Hyatt DO [facility] [address] [place] [address] 01/03/2024 11:32:18 01/05/2024 10:44:29 Abnormal vaginal bleeding 979494789 N93.9 1. The patient was reassured that the vaginal floor should naturally maintain itself without the need for specific interventi ons post-hyste rectomy.2. It was explained that the bleeding experience d was likely due to a minor irritation or tear in the vagina, not related to the absent uterus or cervix.3. The possibilit y of a yeast infection was mentioned as a potential cause of irritation , given the patient's history of widespread bacterial infection. 4. The patient was advised to monitor for any further symptoms and to return if any concerns arise. Health Concerns Section Related Observation LastModified by Organization Detai ls LastModified Time None Recorded Concern Status LastModified by Organization Details LastModified Time None Recorded Advance Directives Directive None Recorded Payers Encounter Date Sequence Insurance Name Policy Number Policy Molina Covered Member ID Molina Member ID Guarantor Name 09/03/2022 1 [facility] [facility] (MEDICAID REPLACEMENT - HMO) [id number] [facility] [id number] [facility] 09/16/2022 1 [facility] [facility] [place] - [place] [id number] Karen Main [id number] [facility] 11/22/2022 1 [place] [facility] [place] - [place] [id number] Karen Main [id number] [facility] 11/22/2022 2 [place] Karen Main [id number] [facility] 12/21/2022 1 [place] [facility] [place] - [place] Karen Main [id number] [facility] Main 01/03/2024 1 [place] [facility] [id number] [facility] Notes Date Note Type Note Provider Name and Address Organization Details Recorded Time 09/03/2022 text/html Here for UDT Juan Hyatt DO [address] [place] [address], [address], [facility] [facility] 09/05/2022 12:36:35 09/16/2022 text/html Pelvic ProlapseReported bypatient.Location:ac dder; rectum Quality:pelvic pressure Associated Symptoms:pelvic pressure;feeling of uterus falling out Pt is here for pelvic prolapse. planning TLH BS Cysto A&P repair, perineo November 12. US in office today. Hyst consent form signed. Juan Hyatt DO [address] [place] [address], [address], [facility] 09/16/2022 16:31:09 11/22/2022 text/html Post-OpReported bypatient.Onset/Timing :date of surgery: (11-11-22) Quality:procedure: (LAPAROSCOPIC TOTAL HYSTERECTOMY (TLH) COLPORRHAPHY ANTERIOR/POSTERIOR REPAIRCYSTOSCOPY (FLEXIBLE/RIGID)) Juan Hyatt DO [address] [place] [address], [place], [address], [facility] 11/22/2022 14:30:58 12/21/2022 text/html Post-OpReported bypatient.Onset/Timing :11/11/2022 Quality:LAPAROSCOPIC TOTAL HYSTERECTOMY (TLH) COLPORRHAPHY ANTERIOR/POSTERIOR REPAIR CYSTOSCOPY Associated Symptoms:incision healing well; no fatigue; normal appetite; normal bowel function; no constipation; no nausea; no emesis; pain improving; no pain; no fever; no bleeding; no lower extremity edema/pain; no dysuria/urinary symptoms Juan Hyatt DO [address] [place] [address], [place], [address], [facility] 12/21/2022 12:40:23 01/03/2024 text/html Karen is a 53 y/ o female. She states she had a large blood clot on 11/24/23. Has not had any bleeding since. Finds it concerning since she had a hysterectomy last year. She had Total laparoscopic hysterectomy, bilateral salpingo-oophorectomy, anterior repair, posterior repair, cystoscopy, and perineoplasty on 11/12/[address] Hyatt. She has a history of diverticulitis and gastritis, reporting an infection that affected her from the back of her tongue to her anus, although the specific bacteria were not identified. Juan Hyatt DO [facility], [place], [address], [facility] [facility] 01/04/2024 10:15:44 OBGyn Episode No OBEpisode recorded.
--- OUTSIDE RECORDS SUMMARY | 2024-07-16 13:22 | XMS_ITS | Clinical Summary ---
Author Organization [facility] Address [address] [place] [address] Care Team Providers Care Ice Cream Freezer Name Role Phone Shannon Valero Cynthia [facility] Primary Care Provider + Social History Tobacco Use Types Packs/Day Years Used Date Smoking Tobacco: Never Assessed Comments Unknown Sex and Gender Information Value Date Recorded Sex Assigned at Not on file Legal Sex Female 3:36 PM CDT Gender Identity Not on file Sexual Orientation Not on file Plan of Treatment Health Maintenance Due Date Last Done Comments Cervical Cancer Screening Pa p Smear (Age 30 to 64) Every 3 Years 1971 Colorectal Cancer Screening Colonoscopy (10 Years) 1971 Annual Physical 1974 Hepatitis C 1989 DTaP, Tdap and Td Vaccines ( 1 - Tdap) 1990 Hepatitis B Vaccines (1 of 3 - 19+ 3-dose series) 1990 Cervical Cancer Screening Pa p with HPV Testing (Age 30 to 64) Every 5 Years 2001 Cervical Cancer Screening with HPV 2001 Mammogram Screening 2011 Zoster Vaccines (1 of 2) 2021 COVID-19 Vaccine (2023-2 5 season) 2023 Meningococcal B Vaccine Aged Out No l onger eligible based on patient's age to complete this topic Meningococcal Vaccine Aged Out No violeta silvia eligible based on patient's age to complete this topic Pneumococcal Vaccine: Pediat rics (0 to 5 Years) and At-Risk Patients (6 to 64 Years) Aged Out No longer eligible b ased on patient's age to complete this topic RSV Immunizations Under 20 Months Aged Out No longer eligible based on patient's age to complete this topic Insurance [facility] C/O PROVIDER SERVICES CEDRICK DACOSTA [id number] Care Teams Ice Cream Freezer Relationship Specialty Start Date End Date Shannon Valero, [employer] TECHNICIAN[employer] [address] [address] PCP - General NURSE PRACTITIONER 08/06/22
--- OUTSIDE RECORDS SUMMARY | 2024-07-16 13:23 | XMS_ITS | Continuity of Care Document ---
Author Organization [facility] Address [address] [place] [address] Phone Care Team Providers Care Tester Regulator Name Role Phone Maninder Hurley MD Unavailable [...] Diagnoses Date Provider Providers Copied on Encounter [employer] [employer], [address], [place], [place], [id number] , tel: [phone] [facility] No Information 0 Xavi Dickens. [address] [place] [address], [id number] , . tel: [phone] [employer], [address], [place], [address] , tel: [phone] [facility] No Information 9 Xavi Dickens. [address] [place] [address], [address], [id number] , . tel: [phone] [facility], [address], [place], [address] , tel: [phone] [facility] No Information 9 Xavi Dickens. [address] [place] [address], [address], [place], [place], [id number] , . tel: [phone] [employer], [address], [place], [place], [address] , tel: [phone] [facility] Body mass index (BMI) 35.0-35.9, adultJaw inflammation, rightNeurofibromatosi sFatigue, unspecified type Gwyn Lazaro. [address] , [address], [place], [place], [address] , . tel: [phone] Referring Provider: Maninder Hurley [address] [place] [address] [address], [place], [address] . tel:[phone] [employer] [employer], [address], [place], [place], [id number] , tel: [phone] [facility] IntertrigoScreening for breast cancerMorbid (severe) obesity due to excess calories Gwyn Lazaro. [address] , [address], [place], [place], [address] , . tel: [phone] Referring Provider: Maninder Hurley [address] [place] [address] [address], [place], [address] . tel:[phone] [employer] [employer], [address], [place], [place], [address] , tel: [phone] [facility] Morbid (severe) obesity due to excess caloriesRashCold Gwyncharla Deutscha. [address] , [address], [place], [place], [address] , . tel: [phone] Referring Provider: Maninder Hurley [address] [place] [address] [address], [place], [address] . tel:[phone] [facility] [address], [place], [place], [address] , tel: [phone] [facility] NeurofibromatosisMorb id obesityPrimary insomniaHistory of traumatic brain injuryEncounter for preventive health examinationNeed for DTaP vaccineScreening examination for pulmonary tuberculosis Gwyn Lazaro. [address] [place] [address], [address], [place], [place], [id number] , [place]. tel: [phone] Referring Provider: Maninder Hurley, [address] [place] [address] [address], [place], [address] . tel:[phone] Family History Family Member Type Diagnosis Age At Onset Mother Problem (finding) Irritable bowel disease Mother Problem (finding) Obesity Mother Problem (finding) osteoarthritis Immunizations Vaccine Date Status Comments Fluzone High-Dose , high dose, preservative free administered Source: New Immunization Record Tdap administered Source: New Imm unization Record Payers Payer name Insurance type Covered libertarian ID Authoriza tion(s) [facility] [id number] [facility] [id number] Social History Type Description Quantity Date Captured [...]
--- OUTSIDE RECORDS SUMMARY | 2024-07-16 13:23 | XMS_ITS | Referral Summary ---
Author Organization [facility] Address [address] [place] [id number] Care Team Providers Care Glass Beveler Name Role Phone Angel Goss MD Primary Care Provider [phone] Allergies Active Allergy Reactions Criticality Noted Date Comments Penicillins Swelling Medium 09/29/2016 Medications erenumab-aooe (AIMOVIG AUTOINJECTOR, 2 PACK,) 70 mg/mL auto-injector subcutaneous injectionIndicat ions:Migraine Prevention Inject 70 mg under the skin every 30 (thirty) days. 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 Active acetaminophen (TYLENOL) 325 mg tablet Take 2 tablets (650 mg total) by mouth every 6 (six) hours as needed for pain 30 tablet 3 Active bisacodyl EC (DULCOLAX EC) 5 mg EC tablet Take 2 tablets (10 mg total) by mouth daily as needed for constipation (If no results 24 hours after milk of magnesia) 30 tablet 3 Active cyclobenzaprine (FLEXERIL) 10 mg tablet Take 1 tablet (10 mg total) by mouth every 8 (eight) hours 30 tablet 3 Active ibuprofen (ADVIL,MOTRIN) 400 mg tablet Take 1 tablet (400 mg total) by mouth every 4 (four) hours as needed for pain 30 tablet 3 Active linaCLOtide (LINZESS) 290 mcg capsuleIndicatio ns:severe constipation Take 1 capsule (290 mcg total) by mouth daily before breakfast 30 capsule 3 Active ciprofloxacin (CIPRO) 500 mg tabletIndication s:Abdominal/Pelv ic Infection Take 1 tablet (500 mg total) by mouth 2 (two) times a day 14 tablet 4 Active dicyclomine (BENTYL) 20 mg tablet Take 1 tablet (20 mg total) by mouth 2 (two) times a day 20 tablet 4 025 Active Active Problems Problem Noted Date Diagnosed Date Abdominal pain 08/01/2022 Pelvic pain 07/31/2022 Hypothyroidism 07/31/2022 Class 2 obesity in adult 07/31/2022 Abdominal pain, generalized 07/30/2022 Migraine without aura 05/04/2018 Atypical chest pain 05/04/2018 Elevated blood pressure, situational 05/04/2018 Generalized anxiety disorder 05/04/2018 Menometrorrhagia 10/11/2016 Anemia 10/11/2016 Epigastric pain 12/23/2010 Abnormal weight loss 12/23/2010 Constipation 12/23/2010 Immunizations Immunization Administration Dates Next Due Influenza, Quadrivalent, Spl it, Preservative Free, Intramuscular 01/29/2020,05/04/2018 Social History Tobacco Use Types Packs/Day Years Used Date Smoking Tobacco: Every Day Cigarettes 0.5 29 Started: 1986; Last attempted to quit: 04/2015 Smokeless Tobacco: Never Alcohol Use Standard Drinks/Week Comments No 0 (1 standard drink = 0.6 oz pur e alcohol) Personal Safety Answer Date Recorded Have you ever been in or are you currently in a harmful physical or emotional relationship or is someone making you feel afraid or unsafe? 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 Gender Identity Not on file Sexual Orientation Not on file Last Filed Vital Signs Vital Sign Reading Time Taken Comments Blood Pressure 131/90 11/25/2023 1:30 AM CDT Pulse 68 11/25/2023 1:30 AM CDT Temperature 36.3 C (97.4 F) 11/24/2023 8:30 PM CDT Respiratory Rate 18 11/24/2023 8:31 PM CDT Oxygen Saturation 99% 11/25/2023 1:30 AM CDT Inhaled Oxygen Concentration - - Weight 106.6 kg (235 lb) 11/24/2023 8:30 PM CDT Height 167.6 cm (5' 6 ) 04/23/2023 5:16 PM CLIENT ACCOUNT REPRESENTATIVE Body Mass Index 37.93 04/23/2023 5:16 PM CLIENT ACCOUNT REPRESENTATIVE Plan of Treatment Not on file Procedures Procedure Name Priority Date/Time Associated Diagnosis Comments SCREENING MAMMOGRAM BILATERAL W PARVIZ Schedule Routine, Read Routine (OP Routine) 07/13/2017 1:10 PM CDT Screening breast examination from Last 3 Months or Most Recently Relevant to Health Maintenance Results * Screening Mammogram Bilateral W Praviz (07/13/2017 1:10 PM CDT) Anatomical Region Laterality Modality Breast Bilateral Mammography Impressions 07/13/2017 1:12 PM CDT BIRADS Category 2: Benign finding(s). Digital technology was employed plus computer-aided detection software (R2) was utilized in interpretation of these images. This facility utilizes a reminder system to notify patients of yearly mammograms. Electronically signed by: Estrada Henson M.D. Narrative 07/13/2017 1:12 PM CDT EXAMINATION: Digital screening mammogram with tomosynthesis. HISTORY: Breast cancer screening. History of left breast cancer at age 29, status post lumpectomy PRIOR: None presently available DENSITY: Scattered fibroglandular densities FINDINGS: Surgical change in the left outer breast is consistent with history of prior lumpectomy. A few scattered benign bilateral breast opacifications are noted. No dominant mass, architectural distortion, nipple retraction, skin thickening, or suspicious calcifications are seen. Iveth Pascal NP IMG MAMMO PROCEDURES Final Res ult from Last 3 Months or Most Recently Relevant to Health Maintenance Insurance [facility] CHOICE PLUS [facility] HMO/PPO Address: [address] [address] [place] [id number] [place] [address] PLAN Advance Directives For more information, please contact: [phone] * Full Code (Latest Code Status on File) Date Activated Date Inactivated Comments 07/30/2022 11:31 PM 08/04/2022 7:46 PM * Full Code Date Activated Date Inactivated Comments 05/03/2018 10:30 PM 05/04/2018 3:19 PM Care Teams Glass Beveler Relationship Specialty Start Date End Date Angel Goss MD [address] [address] PCP - General Family Medicine 11/25/23
--- OUTSIDE RECORDS SUMMARY | 2024-07-16 13:23 | XMS_ITS | Clinical Summary ---
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 Active acetaminophen (TYLENOL) 325 mg [...] Quadrivalent, Spl it, Preservative Free, Intramuscular 01/29/2020,05/04/2018 Surgical History Surgery Date Site/Laterality Comments BREAST LUMPECTOMY 04/18/1998 - 04/17/1999 Left Left breast cancer TUBAL LIGATION 04/18/1994 - 04/17/1995 OTHER SURGICAL HISTORY 04/18/1998 - 04/17/1999 Head trauma - removal of occipital nerves BREAST BIOPSY Medical History Medical History Date Comments Myocardial infarction (HCC) 2006 Breast cancer (HCC) 1998 Left lumpect doc, chemo/rads Neurofibromatosis (HCC) Migraine headache History of radiation therapy 199 9 History of chemotherapy 1998 for breast cancer Family History Medical History Relation Name Comments Stroke Father Deep vein thrombosis Mother Relation Name Status Comments Father Mother Social History Tobacco Use Types Packs/Day Years [...] on file Legal Sex 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 Gender Identity Not on file Sexual Orientation Not on file Obstetrics History Para Term AB IAB SAB Ectopic Multiple Livin g Live Births 9 3 3 6 2 4 3 3 Date Outcome GA Total Labor Labor/2nd/3rd Weight Sex Type Anes PTL Melissa A1 A5 Name Clin SAB SAB SAB SAB Term Term Term IAB IAB Last Filed Vital Signs Vital Sign Reading [...] cm (5' 6 ) 04/23/2023 5:16 PM MEASURING CLERK Body Mass Index 37.93 04/23/2023 5:16 PM MEASURING CLERK Plan of Treatment Health Maintenance Due Date Last Done Comments Cervical Cancer Screening 1971 Colon Cancer Screening-Colonoscopy 1971 Depression Screening 1971 Hepatitis C Screening 1971 DTaP/Tdap/Td Vaccine (1 - Tdap) 1982 Hepatitis B Screening 1989 Regular Well Visit/Exam 18-64 1989 Pneumococcal vaccine <65 (1 of 2 - PCV) 1990 Breast Cancer Screening-Mammogram 07/13/2018 018, 03/10/2015 Zoster Vaccine (1 of 2) 2021 Influenza Vaccine (#1) 2023 1, 01/29/2020, 01/22/2019, Additional history exists Procedures Procedure Name Priority Date/Time Associated Diagnosis Comments SCREENING MAMMOGRAM BILATERAL W PARVIZ Schedule Routine, Read Routine (OP Routine) 07/13/2017 1:10 PM CDT Screening breast examination from Last 3 Months or Most Recently Relevant to Health Maintenance Results * Screening Mammogram Bilateral W Parviz (07/13/2017 1:10 PM CDT) Anatomical Region Laterality [...] Most Recently Relevant to Health Maintenance Insurance [facility] PLUS [facility] H[facility]/PPO Address: [facility] [address] [place] [address] [facility] PLAN [facility] PLAN Advance Directives For more information, please contact: [phone] * Full Code (Latest Code Status on File) Date Activated Date Inactivated Comments 07/30/2022 11:31 PM 08/04/2022 7:46 PM * Full Code Date Activated Date Inactivated Comments 05/03/2018 10:30 PM 05/04/2018 3:19 PM Care Teams Aws Solution Architect Relationship Specialty Start Date End Date Angel Goss MD [address] [address] PCP - General Family Medicine 11/25/23
== END 2024-07-16 12:50 | disposition home or self-care (01) ==
PROVIDERS: Emergency Provider Nurse Practitioner; PCP Family Medicine
DX: T63.481A Toxic effect of venom of other arthropod, accidental (unintentional), initial encounter (principal); F17.210 Nicotine dependence, cigarettes, uncomplicated; E03.9 Hypothyroidism, unspecified; Z85.3 Personal history of malignant neoplasm of breast
CPT/HCPCS: 99213; G0463